=== PATIENT | female | born 1960 | race Caucasian/White ===

== ENCOUNTER 2019-05-13 03:07 | Emergency (ER) | payer BC, OTHER ==
[2019-05-13] MEDS ORDERED: ACETAMINOPHEN-CODEINE 300/30MG TAB ONE (03:29)
== END 2019-05-13 03:38 | disposition home or self-care (01) ==
LOC: EDH 03:07
DX: G89.29 Other chronic pain (principal); M25.562 Pain in left knee; I10 Essential (primary) hypertension; F41.9 Anxiety disorder, unspecified; Z88.0 Allergy status to penicillin